=== PATIENT | female | born 1950 | race Caucasian/White ===

== ENCOUNTER 2016-12-20 19:46 | Emergency (ER) | payer MEDICARE ==
[2016-12-20 20:05] VITALS: TEMP 98.6
[2016-12-20] MEDS ORDERED: MORPHINE SULFATE INJ 10 MG/ML VIAL IV ONE ×2 (20:25→22:37)
--- NOTE | 2016-12-20 20:29 | ED.PDOC ---
History of Present Illness - General Chief Complaint: Back Pain or Injury Stated Complaint: Fall with back/head pain Time Seen by Provider: 12/20/16 20:16 Source: patient, family Exam Limitations: no limitations - History of Present Illness Initial Comments: PT WAS STANDING 5 FEET HIGH ON LADDER. FELL BACKWARD AND HER BACK AND HEAD COLLIDED WITH FLOOR. C/O BACK PAIN IN MIDDLE OF SCAPULA AND PAIN IN FOREHEAD. POS LOC FOR A MOMENT. PT DENIES ANY PAIN INFERIOR TO THE RIBS. Occurred: just prior to arrival Severity: severe Pain Location: head, back, other - RIB PAIN Method of Injury: fall Improving Factors: nothing Worsening Factors: movement Loss of Consciousness: brief (seconds) Associated Symptoms (Fall): headache, vision changes - WHICH RESOLVED AFTER 1 HR Allergies/Adverse Reactions: Allergies Levofloxacin [From Levaquin] Allergy (Unverified 02/13/13 08:23) Home Medications: Ambulatory Orders Aspirin [Aspirin 81] 81 mg PO DAILY 02/12/13 Duloxetine HCl [Cymbalta] 60 mg PO DAILY 02/12/13 Esomeprazole Magnesium [Nexium] 40 mg PO DAILY 02/12/13 Gabapentin [Neurontin] 300 mg PO DAILY 02/12/13 Gabapentin [Neurontin] 600 mg PO BID 02/12/13 Lisinopril 20 mg PO BID 02/12/13 Metoprolol Tartrate [Lopressor] 50 mg PO DAILY 02/12/13 Acetaminophen W/ Codeine [Tylenol W/ CODEINE #3] 1 ea PO Q6H PRN #30 12/20/16 Review of Systems - Review of Systems Constitutional: States: no symptoms reported EENTM: Denies: blurred vision, ear pain, nose pain Respiratory: Denies: cough, short of breath Cardiology: Denies: chest pain, palpitations Gastrointestinal/Abdominal: States: no symptoms reported. Denies: abdominal pain Genitourinary: States: no symptoms reported Musculoskeletal: States: back pain. Denies: neck pain Skin: States: no symptoms reported Neurological: States: headache. Denies: paresthesia, tingling Endocrine: States: no symptoms reported Hematologic/Lymphatic: States: no symptoms reported All other Systems: Reviewed and Negative Past Medical History (General) - Patient Medical History Hx Congestive Heart Failure: No Hx Hypertension: Yes Hx Diabetes: No - Social History Hx Alcohol Use: No Family Medical History - Family History Mother Family History: Unknown Physical Exam - Physical Exam General Appearance: Alert, Obvious distress Head Injury: no evidence of injury Eye Exam: bilateral normal ENT Exam: hearing grossly normal, no evidence of ENT injury, no dental injury Neck Exam: non-tender, other - C-COLLAR IN PLACE FROM EMT. Cardiovascular/Respiratory: regular rate, rhythm, no M/R/G, normal peripheral pulses, normal breath sounds, no respiratory distress Gastrointestinal/Abdominal: normal bowel sounds, non tender, soft Back Exam: normal inspection, no CVA tenderness, other - TTP THORACIC ( INTRASCAPULAR) Extremity Exam: no evidence of injury, normal range of motion, non-tender Neurologic: no motor/sensory deficits, alert, normal mood/affect, oriented x 3 Skin Exam: normal color, warm/dry - [place] Coma Score Best Eye Response ([place]): (4) open spontaneously Best Verbal Response ([place]): (5) oriented Best Motor Response ([place]): (6) obeys commands Progress - Progress Progress: 12/20/16 22:41 CT OF HEAD AND NECK NEG. CT CHEST = NONDISPLACED RIB FRX LEFT 4-9. NO FLAIL CHEST. UA TRACE BLOOD. Departure - Departure Clinical Impression: Multiple rib fractures involving four or more ribs, Fall from height of greater than 3 feet, Headache, Acute upper back pain, Microscopic hematuria Disposition: Discharge to Home or Self Care Condition: Good Departure Forms: ED Discharge - Pt. Copy, Patient Portal Self Enrollment Instructions: DI for Rib Fracture Diet: resume usual diet Activity: increase activity as tolerated Referrals: Juan F Richey MD [Primary Care Provider] - 1-5 Days Prescriptions: Acetaminophen W/ Codeine [Tylenol W/ CODEINE #3] 1 ea PO Q6H PRN #30 PRN Reason: Pain Home Medications: Ambulatory Orders Aspirin [Aspirin 81] 81 mg PO DAILY 02/12/13 Duloxetine HCl [Cymbalta] 60 mg PO DAILY 02/12/13 Esomeprazole Magnesium [Nexium] 40 mg PO DAILY 02/12/13 Gabapentin [Neurontin] 300 mg PO DAILY 02/12/13 Gabapentin [Neurontin] 600 mg PO BID 02/12/13 Lisinopril 20 mg PO BID 02/12/13 Metoprolol Tartrate [Lopressor] 50 mg PO DAILY 02/12/13 Acetaminophen W/ Codeine [Tylenol W/ CODEINE #3] 1 ea PO Q6H PRN #30 12/20/16 Additional Instructions: Please see your regular doctor this week if the pain is not controlled to where you can breathe comfortably. Also please let your regular doctor know your urine shows trace blood, which is likely from the fall. I hope you feel better soon!
--- NOTE | 2016-12-20 21:17 | CT ---
EXAM DATE: 12/20/2016 8:28 PM CDT. PROCEDURE: CT HEAD WITHOUT IV CONTRAST. INDICATION: FELL BACKWARD OFF LADDER. FOREHEAD PAIN. . COMPARISON: 2010. TECHNIQUE: Axial CT images of the head were acquired without intravenous contrast. This exam was performed according to our departmental dose-optimization program which includes use of Automated Exposure Control, adjustment of the mA and/or kV according to patient size and/or use of iterative reconstruction technique. FINDINGS: No acute intracranial hemorrhage. Butler white matter differentiation is preserved. No mass effect or midline shift. No hydrocephalus. Unremarkable orbits. The paranasal sinuses are well aerated. Mastoid air cells are clear. Intact calvarium. IMPRESSION: No acute intracranial abnormality. Electronically signed by: Wade Bailey MD 12/20/2016 9:16 PM CDT
--- NOTE | 2016-12-20 21:21 | CT ---
EXAM DATE: 12/20/2016 8:29 PM CDT. PROCEDURE: CT CERVICAL SPINE WITHOUT IV CONTRAST. INDICATION: FELL BACKWARD OFF LADDER; DIRECT HEAD COLLISION . COMPARISON: None. TECHNIQUE: Axial CT images of the cervical spine were obtained without administration of intravenous contrast. This exam was performed according to our departmental dose-optimization program which includes use of Automated Exposure Control, adjustment of the mA and/or kV according to patient size and/or use of iterative reconstruction technique. FINDINGS: The cervical vertebral bodies demonstrate normal height and alignment. The intervertebral disc spaces are relatively well-preserved. There is osseous fusion of the C2-C3 facet joint on the left. No acute fracture. Unremarkable spinal canal. There is uncovertebral spurring and facet arthropathy scattered throughout the cervical spine resulting in moderate right foraminal stenosis at C4-C5. No high-grade spinal canal stenosis. Dental amalgam causes streak artifact. The soft tissues of the neck are unremarkable. IMPRESSION: No acute fracture or traumatic subluxation. Electronically signed by: Wade Bailey MD 12/20/2016 9:20 PM CDT
--- NOTE | 2016-12-20 21:32 | CT ---
EXAM DESCRIPTION: Chest w/o Contrast CLINICAL HISTORY: FELL BACKWARD OFF LADDER. MIDSCAPULAR PAIN. COMPARISON: None. TECHNIQUE: Axial CT images of the chest were acquired without administration of intravenous contrast. Coronal and sagittal reconstructions were obtained. This exam was performed according to our departmental dose-optimization program which includes use of Automated Exposure Control, adjustment of the mA and/or kV according to patient size and/or use of iterative reconstruction technique. FINDINGS: Neck base: Unremarkable. Mediastinum: Unremarkable. Lymph Nodes: No lymphadenopathy. Heart and pericardium: Unremarkable. Aorta: Minimal calcific atherosclerosis Pulmonary Artery: Unremarkable. Central Airways: Small probable tracheal diverticulum on the right posteriorly image 19 series 4. Pleura: No pneumothorax or pleural effusion. Lungs: Mild dependent atelectasis bilaterally. No suspicious pulmonary nodules or masses. Upper abdomen: Prior cholecystectomy. Otherwise unremarkable. Bones and soft tissues: Nondisplaced fracture of the left fourth, fifth, sixth, seventh, eighth, and ninth ribs. No scapular fracture is identified. IMPRESSION: Nondisplaced fractures of left ribs four through nine. No identifiable scapular fracture. Electronically signed by: Wade Bailey MD 12/20/2016 9:31 PM CDT
[2016-12-20 22:26] VITALS: BP 146/103; O2SAT 98
== END 2016-12-20 23:00 | disposition home or self-care (01) ==
LOC: ER 19:46
DX: S22.42XA Multiple fractures of ribs, left side, initial encounter for closed fracture (principal); R51 Headache; R31.29 Other microscopic hematuria; M54.6 Pain in thoracic spine; I10 Essential (primary) hypertension; Z79.82 Long term (current) use of aspirin; Z79.899 Other long term (current) drug therapy; W11.XXXA Fall on and from ladder, initial encounter; Y92.9 Unspecified place or not applicable
CPT/HCPCS: 70450; 71250; 72125; 81001; J2270

== ENCOUNTER → 2017-07-04 | Outpatient (CLI) | payer MEDICARE | END | disposition home or self-care (01) | LOC: GMAB 12:29 | PROVIDERS: ATTEND Family Medicine | DX: I10 Essential (primary) hypertension (principal) ==

== ENCOUNTER → 2017-10-19 | Outpatient (CLI) | payer MEDICARE | LOC: GMAM 17:55 | PROVIDERS: ATTEND Family Medicine | DX: M79.672 Pain in left foot (principal) ==

== ENCOUNTER 2018-03-02 23:01 | Emergency (ER) | payer MEDICARE ==
--- NOTE | 2018-03-02 23:31 | ED.PDOC ---
History of Present Illness - General Time Seen by Provider: 03/02/18 23:10 Source: patient, RN notes reviewed, Vital Signs reviewed Additional Information: 67 YEAR OLD PRESENTS WITH PAIN IN THE RIGHT SIDE OF THE ABDOMEN FOR THE PAST 5- 6 DAYS PAIN IS IN THE RLQ RADIATING TO THE GROIN AND BACK AND WORSE TODAY SHE HAS LOST HER APPETITE AND FINDING IT DIFFICULT TO WALK WITHOUT STOOPING FORWARD TO SUPPORT HER ABDOMEN SHE ADMITS TO CHRONIC CONSTIPATION FOR 2 YEARS HAS TO USE LAXATIVES AND ENEMA HOWEVER HAS NEVER NOTICED BLOOD OR MUCOUS NO WEIGHT LOSS SHE HAS HAD NEPHROLITHIASIS SEEN DR ARREDONDO IN THE PAST SHE HAS HAD A COLONOSCOPY BY DR HAILE IN 2010 REPORTED NORMAL - History of Present Illness Timing/Duration: 1 week Severity: moderate Improving Factors: nothing Worsening Factors: nothing Associated Symptoms: nausea/vomiting, weakness Allergies/Adverse Reactions: Allergies Hydromorphone [From Dilaudid] Allergy (Verified 03/03/18 00:53) Levofloxacin [From Levaquin] Allergy (Verified 03/03/18 00:52) Home Medications: Ambulatory Orders Aspirin [Aspirin 81] 81 mg PO DAILY 02/12/13 Duloxetine HCl [Cymbalta] 60 mg PO DAILY 02/12/13 Esomeprazole Magnesium [Nexium] 40 mg PO DAILY 02/12/13 Gabapentin [Neurontin] 300 mg PO DAILY 02/12/13 Gabapentin [Neurontin] 600 mg PO BID 02/12/13 Lisinopril 20 mg PO BID 02/12/13 Metoprolol Tartrate [Lopressor] 50 mg PO DAILY 02/12/13 Acetaminophen W/ Codeine [Tylenol W/ CODEINE #3] 1 ea PO Q6H PRN #30 12/20/16 Review of Systems - Review of Systems Constitutional: States: no symptoms reported EENTM: States: no symptoms reported Respiratory: States: no symptoms reported Cardiology: States: no symptoms reported Gastrointestinal/Abdominal: States: see HPI, constipation Genitourinary: States: see HPI Musculoskeletal: States: no symptoms reported Skin: States: no symptoms reported Neurological: States: no symptoms reported Endocrine: States: no symptoms reported Hematologic/Lymphatic: States: no symptoms reported Past Medical History (General) - Patient Medical History Hx Congestive Heart Failure: No Hx Hypertension: Yes Hx Diabetes: No - Social History Hx Alcohol Use: No Family Medical History - Family History Mother Family History: Unknown Physical Exam - Physical Exam General Appearance: Alert, Ill Appearing Eye Exam: bilateral normal Ears, Nose, Throat: hearing grossly normal, normal ENT inspection, normal pharynx Neck: non-tender, full range of motion, supple Respiratory: chest non-tender, lungs clear, normal breath sounds, no respiratory distress, no accessory muscle use Cardiovascular/Chest: normal peripheral pulses, regular rate, rhythm, no edema, no gallop, no JVD Gastrointestinal/Abdominal: normal bowel sounds, non tender, soft, no organomegaly, no pulsatile mass, tenderness, other - TENDER RLQ NO GAURDING OR REBOUND AT THIS TIME BOWEL SOUNDS PRESENT Back Exam: normal inspection, no CVA tenderness, no vertebral tenderness Extremity: normal range of motion, non-tender, normal inspection, no pedal edema , no calf tenderness Neurologic: insurance analyst II-XII nml as tested, no motor/sensory deficits, alert, normal mood/affect, oriented x 3 Skin Exam: normal color Lymphatic: no adenopathy Progress - Results/Orders Results/Orders: Laboratory Tests 03/02/18 03/02/18 03/02/18 21:39 22:30 22:30 WBC 16.1 H RBC 4.39 Hgb 13.8 Hct 40.8 MCV 92.7 MCH 31.4 H MCHC 33.8 RDW 13.4 Plt Count 267 MPV 7.9 Absolute Neuts (auto) 12.60 H Absolute Lymphs (auto) 1.60 Absolute Monos (auto) 1.80 H Absolute Eos (auto) 0.10 Absolute Basos (auto) 0.10 Neutrophils % 77.9 Lymphocytes % 10.1 L Monocytes % 11.1 H Eosinophils % 0.5 L Basophils % 0.4 Sodium 138 Potassium 3.7 Chloride 105 Carbon Dioxide 25 Anion Gap 11.7 L BUN Cancelled 16 Creatinine Cancelled 0.83 BUN/Creatinine Ratio 19.3 Random Glucose 128 H Serum Osmolality 278.5 Calcium 9.3 Total Bilirubin 0.7 AST 32 ALT 27 Alkaline Phosphatase 85 Serum Total Protein 7.5 Albumin 4.2 Globulin 3.3 Albumin/Globulin Ratio 1.3 Urine Color Urine Appearance Urine pH Ur Specific [place] Urine Protein Urine Glucose (UA) Urine Ketones Urine Blood Urine Nitrite Urine Bilirubin Urine Urobilinogen Ur Leukocyte Esterase Urine RBC Urine WBC Ur Epithelial Cells Urine Bacteria 03/03/18 00:05 WBC RBC Hgb Hct MCV MCH MCHC RDW Plt Count MPV Absolute Neuts (auto) Absolute Lymphs (auto) Absolute Monos (auto) Absolute Eos (auto) Absolute Basos (auto) Neutrophils % Lymphocytes % Monocytes % Eosinophils % Basophils % Sodium Potassium Chloride Carbon Dioxide Anion Gap BUN Creatinine BUN/Creatinine Ratio Random Glucose Serum Osmolality Calcium Total Bilirubin AST ALT Alkaline Phosphatase Serum Total Protein Albumin Globulin Albumin/Globulin Ratio Urine Color Yellow Urine Appearance Clear Urine pH 6.0 Ur Specific [place] 1.010 Urine Protein Negative Urine Glucose (UA) Negative Urine Ketones Negative Urine Blood Trace-lysed H Urine Nitrite Negative Urine Bilirubin Negative Urine Urobilinogen 0.2 Ur Leukocyte Esterase Negative Urine RBC 1-3 Urine WBC 3-5 H Ur Epithelial Cells 3-5 Urine Bacteria Rare Departure - Departure Clinical Impression: Colitis, Diverticulitis, Inflammatory bowel disease Time of Disposition: 00:59 Disposition: Transfer to Hospital Condition: Fair Referrals: Daron Rasmussen MD [Primary Care Provider] - 1-2 Weeks Home Medications: Ambulatory Orders Aspirin [Aspirin 81] 81 mg PO DAILY 02/12/13 Duloxetine HCl [Cymbalta] 60 mg PO DAILY 02/12/13 Esomeprazole Magnesium [Nexium] 40 mg PO DAILY 02/12/13 Gabapentin [Neurontin] 300 mg PO DAILY 02/12/13 Gabapentin [Neurontin] 600 mg PO BID 02/12/13 Lisinopril 20 mg PO BID 02/12/13 Metoprolol Tartrate [Lopressor] 50 mg PO DAILY 02/12/13 Acetaminophen W/ Codeine [Tylenol W/ CODEINE #3] 1 ea PO Q6H PRN #30 12/20/16 Transfer to Outside Facility - Transfer Information Accepting Provider:: DR PEREZ Accepting Facility: [facility]
[2018-03-02] MEDS ORDERED: KETOROLAC TROMETHAMINE INJ 30 MG/ML VIAL IV ONE (23:37)
[2018-03-02] MEDS ORDERED: SODIUM CHLORIDE 0.9% 1000ML 1,000 ML IVS ONE (23:37)
--- NOTE | 2018-03-03 00:38 | CT ---
EXAM DESCRIPTION: Abdomen/Pelvis w/Contrast CLINICAL HISTORY: 67 years Female rt low quad pain COMPARISON: CT chest study from 12/20/2016. TECHNIQUE: Contiguous axial images obtained through the abdomen and pelvis following IV contrast. Reformatted images obtained. This exam was performed according to our department optimization program which includes automated exposure control, adjustment of the mA and/or kv according to patient size and/or use of iterative reconstruction technique. FINDINGS: Minimal atelectasis or scarring in the lower lungs. The liver appears unremarkable. The spleen and pancreas appear unremarkable. No adrenal masses. The kidneys appear unremarkable. No hydronephrosis. Changes from previous cholecystectomy. No aneurysmal dilatation of the aorta. No bowel obstruction. The appendix appears unremarkable. There are diverticula within the sigmoid colon. There is wall thickening in the sigmoid colon with surrounding inflammatory changes. There is some low density along the wall of the distal sigmoid colon suggesting an intramural abscess. The findings are likely from diverticulitis. Colitis is not completely excluded. No significant free pelvic fluid. Mild degenerative changes in the spine. IMPRESSION: There is wall thickening in the sigmoid colon with surrounding inflammatory changes. There is low density along the wall of the distal sigmoid colon suggesting an intramural abscess. The findings are likely from diverticulitis. Colitis is not completely excluded. Electronically signed by: Dino Warren MD 03/03/2018 12:37 AM COMPUTER SCIENCE PROFESSOR Workstation: Where I've Been
[2018-03-03] MEDS ORDERED: PIPERACILLIN/TAZOBACTAM 3.375 GM in SODIUM CHLORIDE 0.9% 100ML 100 ML IVPB ONE (00:49)
[2018-03-03] MEDS ORDERED: PIPERACILLIN/TAZOBACTAM 3.375 GM VIAL IVPB ONE (00:53)
[2018-03-03] MEDS ORDERED: SODIUM CHLORIDE 0.9% 100ML 100 ML IVPB ONE (00:53)
[2018-03-03] MEDS ORDERED: MORPHINE SULFATE INJ 10 MG/ML VIAL IV ONE (01:28)
[2018-03-03 02:20] VITALS: BP 95/60; TEMP 99.9; O2SAT 94
== END 2018-03-03 02:36 | disposition short-term general hospital (02) ==
LOC: ER 23:01
DX: K52.9 Noninfective gastroenteritis and colitis, unspecified (principal); K57.90 Diverticulosis of intestine, part unspecified, without perforation or abscess without bleeding; K58.9 Irritable bowel syndrome, unspecified; I10 Essential (primary) hypertension
CPT/HCPCS: 36415; 74177; 80053; 81001; 85025; J1885; J2270; J2543; J7030; J7050

== ENCOUNTER 2018-03-09 13:04 | Emergency (ER) | payer MEDICARE ==
[2018-03-09 13:28] VITALS: TEMP 99.2
[2018-03-09] MEDS ORDERED: SODIUM CHLORIDE 0.9% 1000ML 1,000 ML IVS ONE (13:38)
--- NOTE | 2018-03-09 13:46 | ED.PDOC ---
History of Present Illness - General Chief Complaint: Syncope/Near Syncope Stated Complaint: syncope,diverticulitis Time Seen by Provider: 03/09/18 13:36 Source: patient, family Exam Limitations: no limitations - History of Present Illness Initial Comments: patient comes in today for syncopal episodes, worsening abdominal pain, and weakness. A week ago patient began having right lower quadrant abdominal pain with fever and nausea. Patient came in and CAT scan showedpossible intramural abscess from diverticulitis. The patient was transferred to [place] where she spent 2 days on IV antibiotics. She was discharged when she was doing better but she continued to be sick with some pain and generalized weakness. Patient was followed up earlier this week on Monday with PCP Dr. Rasmussen and at that time pain was slightly improved, white blood cell count had returned to normal, and patient was continued on Augmentin that she was discharged home on from the hospital stay. On Monday however, patient had a syncopal episode when she was on the toilet going to have a bowel movement. Patient states the pain is moderate until she has a bowel movement and then can feel when the BM gets to the area of discomfort and the pain becomes severe. That time patient fell to the floor hitting her head and was taken to ER in [place]. Workup in [place] was normal and they sent her home to continue the augmentin and added tramadol for pain. Patient has becoming slightly worse in the last 24 hours. Last night patient was again on the toilet when she became very dizzy and called her and to monitor her. Patient had episode of syncope that lasted approximately 30 seconds with 1-2 minutes of lethargy afterwards. This time she did not fall or injure herself. Her was standing by holding her. She had no tonic-clonic activity. She was alert and oriented after the incident. She denies any other systemic problems. She's had some chills last night for the first time since she got out of the hospital. She's had no known fever. She denies chest pain, shortness of breath, nausea, or vomiting. Patient's had no blood in her stools. She otherwise fairly healthy and her past medical history is positive only for hypertension. Past surgical history is positive for abdominal hysterectomy and laparoscopic cholecystectomy. Patient has no history of tobacco use, rarely uses ETOH, and does not take illicit substances. Timing/Duration: 1 week Severity: moderate Improving Factors: nothing Worsening Factors: nothing Associated Symptoms: fever/chills, weakness Allergies/Adverse Reactions: Allergies Hydromorphone [From Dilaudid] Allergy (Verified 03/03/18 00:53) Levofloxacin [From Levaquin] Allergy (Verified 03/03/18 00:52) Home Medications: Ambulatory Orders Aspirin [Aspirin 81] 81 mg PO DAILY 02/12/13 Duloxetine HCl [Cymbalta] 60 mg PO DAILY 02/12/13 Esomeprazole Magnesium [Nexium] 40 mg PO DAILY 02/12/13 Gabapentin [Neurontin] 300 mg PO DAILY 02/12/13 Gabapentin [Neurontin] 600 mg PO BID 02/12/13 Lisinopril 20 mg PO BID 02/12/13 Metoprolol Tartrate [Lopressor] 50 mg PO DAILY 02/12/13 Acetaminophen W/ Codeine [Tylenol W/ CODEINE #3] 1 ea PO Q6H PRN #30 12/20/16 Review of Systems - Review of Systems Constitutional: States: weakness EENTM: States: no symptoms reported. Denies: eye pain, ear pain, nose pain, throat pain Respiratory: States: no symptoms reported. Denies: cough, short of breath, wheezing Cardiology: States: syncope. Denies: chest pain, edema, palpitations Gastrointestinal/Abdominal: States: see HPI, abdominal pain. Denies: const ipation, diarrhea, nausea, vomiting Genitourinary: States: no symptoms reported Musculoskeletal: States: no symptoms reported Skin: States: no symptoms reported Past Medical History (General) - Patient Medical History Hx Stroke: No Hx Congestive Heart Failure: No Hx Hypertension: Yes Hx Diabetes: No Surgical History: cholecystectomy, tonsillectomy, Hysterectomy - Vaccination History Hx Tetanus, Diphtheria Vaccination: Yes Hx Influenza Vaccination: No Hx Pneumococcal Vaccination: No - Social History Hx Tobacco Use: Yes Hx Alcohol Use: No Family Medical History - Family History Mother Family History: Unknown Physical Exam - Physical Exam General Appearance: Alert, Ill Appearing Eye Exam: bilateral normal Ears, Nose, Throat: hearing grossly normal, normal ENT inspection, normal pharynx Neck: non-tender, full range of motion, supple, normal inspection Respiratory: chest non-tender, lungs clear, normal breath sounds Cardiovascular/Chest: normal peripheral pulses, regular rate, rhythm, no edema, no murmur Gastrointestinal/Abdominal: soft, other - TTP RLQ without mass, rebound, or guarding. Extremity: normal range of motion, non-tender Neurologic: alert, oriented x 3 Progress - Progress Progress: 03/09/18 15:02 patient is feeling better with IVF. She admits to decreased po intake with ongoing infection. Explained need to increase her intake and will try some ensure. Follow up in am but all tests are improved and patient is ready to be discharged home. - Results/Orders Results/Orders: 03/09/18 13:38 Hold Metformin x 48Hrs [id number] 03/09/18 13:45 EKG STAT Laboratory Results WBC 10.0 K/mm3 (4.8-10.8) 03/09/18 13:56 RBC 4.65 M/mm3 (4.20-5.40) 03/09/18 13:56 Hgb 14.5 gm/dL (12.0-16.0) 03/09/18 13:56 Hct 43.0 % (36.0-47.0) 03/09/18 13:56 MCV 92.6 fl (81.0-99.0) 03/09/18 13:56 MCH 31.2 pg (27.0-31.0) H 03/09/18 13:56 MCHC 33.7 g/dL (33.0-37.0) 03/09/18 13:56 RDW 13.7 % (11.5-14.5) 03/09/18 13:56 Plt Count 404 K/mm3 (130-400) H 03/09/18 13:56 MPV 7.7 fl (7.40-10.4) 03/09/18 13:56 Absolute Neuts (auto) 7.10 K/uL (1.8-6.8) H 03/09/18 13:56 Absolute Lymphs (auto) 1.90 K/uL (1.0-3.4) 03/09/18 13:56 Absolute Monos (auto) 0.90 K/uL (0.2-0.8) H 03/09/18 13:56 Absolute Eos (auto) 0.10 K/uL (0.0-0.4) 03/09/18 13:56 Absolute Basos (auto) 0.10 K/uL (0.0-0.1) 03/09/18 13:56 Neutrophils % 70.8 % (42.0-78.0) 03/09/18 13:56 Lymphocytes % 18.9 % (20.0-50.0) L 03/09/18 13:56 Monocytes % 8.5 % (2.0-9.0) 03/09/18 13:56 Eosinophils % 0.6 % (1.0-5.0) L 03/09/18 13:56 Basophils % 1.2 % (0.0-2.0) 03/09/18 13:56 Sodium 139 mmol/L (135-145) 03/09/18 13:56 Potassium 4.5 mmol/L (3.6-5.0) 03/09/18 13:56 Chloride 101 mmol/L (101-111) 03/09/18 13:56 Carbon Dioxide 28 mmol/L (21-31) 03/09/18 13:56 Anion Gap 14.5 (12-18) 03/09/18 13:56 BUN 17 mg/dL (7-18) 03/09/18 13:56 Creatinine 0.84 mg/dL (0.6-1.3) 03/09/18 13:56 BUN/Creatinine Ratio 20.2 (10-20) H 03/09/18 13:56 Random Glucose 101 mg/dL (70-105) 03/09/18 13:56 Serum Osmolality 279.2 mOsm/L (275-295) 03/09/18 13:56 Lactic Acid 1.0 mmol/L (0.5-2.2) 03/09/18 13:56 Calcium 9.9 mg/dL (8.4-10.2) 03/09/18 13:56 Total Bilirubin 0.6 mg/dL (0.2-1.0) 03/09/18 13:56 AST 27 IU/L (10-42) 03/09/18 13:56 ALT 30 IU/L (10-60) 03/09/18 13:56 Alkaline Phosphatase 90 IU/L (42-121) 03/09/18 13:56 Creatine Kinase 35 IU/L (26-140) 03/09/18 13:56 CK-MB (CK-2) 0.7 ng/mL (0.0-4.4) 03/09/18 13:56 CK-MB (CK-2) % Not Reportable 03/09/18 13:56 Troponin I < 0.02 ng/mL (0.01-0.05) 03/09/18 13:56 Serum Total Protein 7.7 gm/dL (6.4-8.2) 03/09/18 13:56 Albumin 4.1 g/dl (3.2-5.5) 03/09/18 13:56 Globulin 3.6 gm/dL (2.3-3.5) H 03/09/18 13:56 Albumin/Globulin Ratio 1.1 (1.1-1.9) 03/09/18 13:56 Patient Name: PAXTON BRUNO Gender: Female Date of : 1950 Referring Physician: KOLTON ALMARAZ Organization: [facility] Accession Number: [id number] Requested Date: March 09, 2018 13:38 Report Status: Final Requested Procedure: 1 Procedure Description: Abdomen/Pelvis w/wo Contrast Modality: CT Findings Reporting MD: Dada Swanson Fellow MD: Not available Dictation Time: [employer] Team Leader: Not available Bed Laster Date: EXAM DESCRIPTION: Abdomen/Pelvis w/wo Contrast: Computed Tomography. CLINICAL HISTORY: worsening pain ?abscess on prior CT COMPARISON: None. TECHNIQUE: Spiral-axial scans at 5 x 5 mm intervals through the abdomen and pelvis before and after standard dose nonionic IV contrast. No oral contrast. Coronal and sagittal 2.0 mm reconstructions. 5 mm Delayed helical-axial scans, liver through the pubic symphysis. No adverse reactions. Total Exam DLP 1391.44 mGy - cm. This exam was performed according to our departmental CT dose-optimization program which includes automated exposure control, adjustment of the mA and/or kV according to patient size and/or use of iterative reconstruction technique; to reduce radiation dose to as low as reasonably achievable (ALARA). FINDINGS: Colon: Diffuse fecal material with minimal gas bubbles in the rectosigmoid colon. Significant improvement compared to thickening of the distal sigmoid and proximal rectal wall with edema, no serosal thickening, and surrounding fatty stranding seen on the prior study. Minimal stranding remains with minimal enhancement of the bowel wall. Minimal fluid in the cul-de-sac and fascial thickening. Decompression of the more proximal descending colon compared to the prior study. Diverticula normal caliber in the mid and distal sigmoid. Minimal distention of the cecum, ascending colon, and transverse colon with fecal matter, but less distended than on the prior study. No air-fluid levels. Pelvic Organs: Urinary bladder well-distended with no radiodense stones. Vaginal cuff and adnexa negative. Lung bases and pleura: Bilateral scarring in the lung bases and pleural thickening more on the left than the right unchanged. Minimal coronary artery calcifications. Liver, Stomach, Spleen, Adrenal Glands: Minimal dilation of the intrahepatic ducts. Mild dilation of the common bile duct post cholecystectomy. No focal hepatic splenic or adrenal lesions. Stomach negative. Pancreas, Gallbladder: Surgical clips in the gallbladder fossa [facility] [employer] [address] [place] [address], [address] [place] [address] T [phone] F [phone] [email or web address] - Report exported on Mar 09, 2018 15:01:11 -0600 - Page 2 of 2 with no fluid. Pancreas negative. Kidneys and Ureters: Unremarkable. Mesentery: Minimal stranding and fascial thickening only in the pelvis adjacent to the sigmoid colon and proximal rectum but decreased compared to the prior study. Aorta: Bilateral atherosclerotic calcification normal caliber. Small Bowel: Contains minimal gas mostly fluid with no distention. Terminal Ileum/Cecum: Normal caliber. Appendix not seen. No abnormal fatty density. Spine and Bony Pelvis: Cystic degenerative changes subchondral right acetabulum. Also seen on the prior study. Abdominal Wall/Back Soft Tissues: Negative. IMPRESSION: 1. Significantly decreased inflammatory changes in the wall and mucosa of the distal sigmoid and proximal rectum compared to the prior study with decreased inflammatory reaction in the surrounding soft tissues and decreased fluid in the cul-de-sac. No diverticular enlargement. Decreased caliber of proximal colon from the cecum to the sigmoid. Mild constipation from the cecum to the splenic flexure. 2. Remainder the study shows no new findings since the prior study. 3.Consider plain film follow-up degenerative changes in the right hip, especially if patient symptomatic. - EKG/XRAY/CT EKG: Sinus, no ST T wave changes Comments: HR of 77 with normal axis Departure - Departure Clinical Impression: Diverticulitis Disposition: Discharge to Home or Self Care Condition: Fair Departure Forms: ED Discharge - Pt. Copy, Patient Portal Self Enrollment Diet: other - increase intake trial of Ensure between meals Referrals: Daron Rasmussen MD [Primary Care Provider] - 1-2 Weeks Home Medications: Ambulatory Orders Aspirin [Aspirin 81] 81 mg PO DAILY 02/12/13 Duloxetine HCl [Cymbalta] 60 mg PO DAILY 02/12/13 Esomeprazole Magnesium [Nexium] 40 mg PO DAILY 02/12/13 Gabapentin [Neurontin] 300 mg PO DAILY 02/12/13 Gabapentin [Neurontin] 600 mg PO BID 02/12/13 Lisinopril 20 mg PO BID 02/12/13 Metoprolol Tartrate [Lopressor] 50 mg PO DAILY 02/12/13 Acetaminophen W/ Codeine [Tylenol W/ CODEINE #3] 1 ea PO Q6H PRN #30 12/20/16 Additional Instructions: follow up in am with PCP. Return to Er for syncope, increase pain, temp >100.5
--- NOTE | 2018-03-09 14:53 | CT ---
EXAM DESCRIPTION: Abdomen/Pelvis w/wo Contrast: Computed Tomography. CLINICAL HISTORY: worsening pain ?abscess on prior CT COMPARISON: None. TECHNIQUE: Spiral-axial scans at 5 x 5 mm intervals through the abdomen and pelvis before and after standard dose nonionic IV contrast. No oral contrast. Coronal and sagittal 2.0 mm reconstructions. 5 mm Delayed helical-axial scans, liver through the pubic symphysis. No adverse reactions. Total Exam DLP 1391.44 mGy - cm. This exam was performed according to our departmental CT dose-optimization program which includes automated exposure control, adjustment of the mA and/or kV according to patient size and/or use of iterative reconstruction technique; to reduce radiation dose to as low as reasonably achievable (ALARA). FINDINGS: Colon: Diffuse fecal material with minimal gas bubbles in the rectosigmoid colon. Significant improvement compared to thickening of the distal sigmoid and proximal rectal wall with edema, no serosal thickening, and surrounding fatty stranding seen on the prior study. Minimal stranding remains with minimal enhancement of the bowel wall. Minimal fluid in the cul-de-sac and fascial thickening. Decompression of the more proximal descending colon compared to the prior study. Diverticula normal caliber in the mid and distal sigmoid. Minimal distention of the cecum, ascending colon, and transverse colon with fecal matter, but less distended than on the prior study. No air-fluid levels. Pelvic Organs: Urinary bladder well-distended with no radiodense stones. Vaginal cuff and adnexa negative. Lung bases and pleura: Bilateral scarring in the lung bases and pleural thickening more on the left than the right unchanged. Minimal coronary artery calcifications. Liver, Stomach, Spleen, Adrenal Glands: Minimal dilation of the intrahepatic ducts. Mild dilation of the common bile duct post cholecystectomy. No focal hepatic splenic or adrenal lesions. Stomach negative. Pancreas, Gallbladder: Surgical clips in the gallbladder fossa with no fluid. Pancreas negative. Kidneys and Ureters: Unremarkable. Mesentery: Minimal stranding and fascial thickening only in the pelvis adjacent to the sigmoid colon and proximal rectum but decreased compared to the prior study. Aorta: Bilateral atherosclerotic calcification normal caliber. Small Bowel: Contains minimal gas mostly fluid with no distention. Terminal Ileum/Cecum: Normal caliber. Appendix not seen. No abnormal fatty density. Spine and Bony Pelvis: Cystic degenerative changes subchondral right acetabulum. Also seen on the prior study. Abdominal Wall/Back Soft Tissues: Negative. IMPRESSION: 1. Significantly decreased inflammatory changes in the wall and mucosa of the distal sigmoid and proximal rectum compared to the prior study with decreased inflammatory reaction in the surrounding soft tissues and decreased fluid in the cul-de-sac. No diverticular enlargement. Decreased caliber of proximal colon from the cecum to the sigmoid. Mild constipation from the cecum to the splenic flexure. 2. Remainder the study shows no new findings since the prior study. 3.Consider plain film follow-up degenerative changes in the right hip, especially if patient symptomatic. Electronically signed by: Dada Swanson MD 03/09/2018 2:51 PM [facility]
[2018-03-09 15:23] VITALS: BP 140/86; O2SAT 96
== END 2018-03-09 15:45 | disposition home or self-care (01) ==
LOC: ER 13:04
DX: K57.32 Diverticulitis of large intestine without perforation or abscess without bleeding (principal); R55 Syncope and collapse; Z90.49 Acquired absence of other specified parts of digestive tract; Z87.891 Personal history of nicotine dependence
CPT/HCPCS: 36415; 74178; 80053; 82550; 82553; 83605; 84484; 85025; 93005; J7030

== ENCOUNTER → 2019-03-08 | Outpatient (CLI) | payer MEDICARE ==
--- NOTE | 2019-03-08 11:05 | CT ---
EXAM DESCRIPTION: CTA Neck CLINICAL HISTORY: 68 years Female, OCCLUSION AND STENOSIS OF UNSPEC CAROTID ARTERY COMPARISON: Doppler carotid 10/16/2010 TECHNIQUE: Helical CT images are acquired from aortic arch to skull base following intravenous contrast. Multi-planar reformations provided. This examination was performed according to a CT angiographic (CTA) protocol with 3D post-processing. This involves 3D reconstructions, MIPS, volume rendered images and/or shaded surface rendering. This exam was performed according to our departmental dose-optimization program, which includes automated exposure control, adjustment of the mA and/or kV according to patient size and/or use of iterative reconstruction technique. FINDINGS: Cervical-cerebral arch: Conventional branching of the aortic arch. Patent origins of the great vessels and visualized subclavian arteries. Right carotid system: Normal without significant atherosclerosis. The estimated internal carotid stenosis by NASCET criteria is 0%. Left carotid system: Normal without significant atherosclerosis. The estimated internal carotid stenosis by NASCET criteria is 0%. Vertebral arteries: Patent vertebral arteries and its origins. Musculoskeletal: No acute fracture or aggressive appearing osseous lesion. Soft tissues unremarkable. Other findings: 5 mm hypodense left thyroid nodule. No further imaging follow-up recommended based on size and patient's age. IMPRESSION: 1. Unremarkable CTA of the neck. COMMENT: All internal carotid artery stenoses are calculated based on NASCET criteria. Electronically signed by: Bishnu Mane MD 03/08/2019 11:00 AM SOURCING ASSOCIATE
== END ==
LOC: CT 09:30
PROVIDERS: ATTEND Family Medicine
DX: I65.29 Occlusion and stenosis of unspecified carotid artery (principal)

== ENCOUNTER → 2019-10-28 | Outpatient (CLI) | payer MEDICARE | LOC: GMAM 14:42 | PROVIDERS: ATTEND Family Medicine | DX: E34.9 Endocrine disorder, unspecified (principal); I10 Essential (primary) hypertension ==

== ENCOUNTER → 2019-10-31 | Outpatient (CLI) | payer MEDICARE ==
--- NOTE | 2019-11-02 18:55 | US ---
EXAM DESCRIPTION: Soft Tissue,Head/Neck: ULTRASOUND. CLINICAL HISTORY: 69 years Female LYMPHADENOPATHY RIGHT CERVICAL AND SUPRACLAVICULAR COMPARISON: CTA neck February [address] scan cervical spine November 2016 TECHNIQUE: Transcutaneous scanning: Butler-scale and Doppler modes. FINDINGS: Scanning lateral right neck and base of neck. Palpable mass sagittal right neck. Hypoechoic mass with eccentric echogenicity. The mass measures 6.3 x 5.8 x 4.9 mm and vascular. Consistent with a lymph node. Right mandibular gland is present. IMPRESSION: Possibly reactive lymph node right lateral neck at the base. Smaller nodes also present. No dominant solid mass, no distinct cyst, no fluid collection or calcification. Small lymph nodes are abutting the right submandibular gland on prior CT scans. Electronically signed by: Dada Swanson MD 11/02/2019 6:54 PM CDT
== END ==
LOC: US 11:01
PROVIDERS: ATTEND Family Medicine
DX: R59.9 Enlarged lymph nodes, unspecified (principal)

== ENCOUNTER 2020-02-18 17:28 | Emergency (ER) | payer MEDICARE ==
[2020-02-18 18:02] VITALS: TEMP 96.9
--- NOTE | 2020-02-18 18:32 | RAD ---
EXAM DESCRIPTION: Chest,1 View CLINICAL HISTORY: 69 years Female sob COMPARISON: CT chest study from 12/20/2016. FINDINGS: The cardiomediastinal silhouette appears unremarkable. No consolidating infiltrates or pleural effusions. No pneumothorax. Old left rib fractures. IMPRESSION: No acute abnormality is identified. Electronically signed by: Dino Warren MD 02/18/2020 6:31 PM MAGAZINE EDITOR
--- NOTE | 2020-02-18 19:17 | ED.PDOC ---
History of Present Illness - General Chief Complaint: Respiratory Problem Stated Complaint: SOB STATES SATS BELOW 95% Time Seen by Provider: 02/18/20 17:51 Source: patient, RN notes reviewed, Vital Signs reviewed Exam Limitations: no limitations - History of Present Illness Initial Comments: Patient is a 69-year-old white female who presents with complaints of her oxygen saturation being below 95%. She stated that she spoke to her doctor, Dr. Rose Rasmussen who told her that if her oxygen saturation dropped below 95% she should immediately come to the emergency department. Patient complains of slightly worsening shortness of breath over the last 24 hours. She was doing well until earlier this morning when she became more short of breath and tired. Patient states that her oxygen saturation dropped to 94% and so she came in. Patient denies any fever or chills. Patient was diagnosed with Covid approximately 7 days ago. Patient just finished a round of prednisone and a Z-Sukhwinder that was prescribed by her PCP. Shortness of breath is worse with exertion. It is improved with rest. Patient is not on oxygen at home. Timing/Duration: 1 week, getting worse Severity: moderate Improving Factors: rest Worsening Factors: movement Associated Symptoms: cough, loss of appetite, shortness of breath Allergies/Adverse Reactions: Allergies Hydromorphone [From Dilaudid] Allergy (Verified 02/18/20 18:02) Levofloxacin [From Levaquin] Allergy (Verified 02/18/20 18:02) Home Medications: Ambulatory Orders Aspirin [Aspirin 81] 81 mg PO DAILY 02/12/13 Gabapentin [Neurontin] 600 mg PO BID 02/12/13 Amoxicillin & Pot Clavulanate [Augmentin Tab] 875 mg PO BID 03/09/18 B-Complex W/Biotin & Folic Aci [Super B-Complex] 1 tab PO DAILY 03/09/18 Cholecalciferol [Vitamin D-3] 5,000 unit PO DAILY 03/09/18 Polyethylene Glycol 3350 [Miralax] 17 gm PO TID 03/09/18 Probiotic Product [Probiotic] 1 tab PO DAILY 03/09/18 Promethazine HCl 12.5 mg PO Q6H PRN 03/09/18 Ropinirole Hydrochloride [Ropinirole ER] 4 mg PO BEDTIME 03/09/18 Rosuvastatin Calcium 20 mg PO DAILY 03/09/18 Telmisartan 40 mg PO DAILY 03/09/18 Tramadol HCl 50 mg PO Q4H PRN 03/09/18 Review of Systems - Review of Systems Constitutional: States: see HPI, malaise, weakness. Denies: chills, fever EENTM: States: no symptoms reported. Denies: eye pain, blurred vision, double vision Respiratory: States: see HPI, cough, short of breath. Denies: stridor, wheezing Cardiology: States: no symptoms reported. Denies: chest pain, palpitations, syncope Gastrointestinal/Abdominal: States: no symptoms reported. Denies: abdominal pain, diarrhea, nausea, vomiting Genitourinary: States: no symptoms reported. Denies: dysuria, frequency Musculoskeletal: States: no symptoms reported. Denies: back pain, joint pain, neck pain Skin: States: no symptoms reported. Denies: change in color, rash Neurological: States: see HPI, weakness. Denies: headache, numbness, paresthesia, tingling, tremors Endocrine: States: no symptoms reported. Denies: increased hunger, increased thirst, increased urine Hematologic/Lymphatic: States: no symptoms reported. Denies: blood clots, easy bleeding All other Systems: No Change from Baseline Past Medical History (General) - Patient Medical History Hx Stroke: No Hx of COPD: No Hx Cardiac Disorders: No Hx Congestive Heart Failure: No Hx Hypertension: Yes Hx Diabetes: No Hx Cancer: No Hx Hepatitis C: No Surgical History: cholecystectomy, Hysterectomy - Vaccination History Hx Tetanus, Diphtheria Vaccination: No Hx Influenza Vaccination: Yes Hx Pneumococcal Vaccination: No Immunizations Up to Date: No - Social History Hx Tobacco Use: No Hx Alcohol Use: No Hx Substance Use: No Hx Substance Use Treatment: No Hx Depression: No - Female History Patient is a Female of Child Bearing Age (10 -59 yrs old): No Family Medical History - Family History Mother Family History: Unknown Physical Exam - Physical Exam General Appearance: Alert, Anxious, No apparent distress, Well Developed, Well Groomed, Well Hydrated, Well Nourished Eye Exam: bilateral normal Ears, Nose, Throat: hearing grossly normal, normal ENT inspection, normal pharynx Neck: non-tender, full range of motion, supple Respiratory: chest non-tender, lungs clear, normal breath sounds, no respiratory distress Cardiovascular/Chest: normal peripheral pulses, regular rate, rhythm, no edema, no gallop, no JVD, no murmur Peripheral Pulses: radial,right: 2+, radial,left: 2+ Gastrointestinal/Abdominal: normal bowel sounds, non tender, soft Back Exam: no CVA tenderness, no vertebral tenderness Extremity: normal range of motion, non-tender, normal inspection 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 02/18/20 19:21 Patient's chest x-ray is pristine. Lab work is relatively unremarkable. Unlikely to have PE. Patient was diagnosed at outside clinic with Covid. I thi nk this is just a side effect of her Covid. Her oxygen saturations have never gone below 95% here in the ED and she is resting comfortably on room air at 97% O2 sats. Plan on discharge home with follow-up with PCP. I discussed the plan of care with the patient she voices understanding and agreement. Dino Castellano M.D. #[id number] - Results/Orders Results/Orders: Laboratory Tests 02/18/20 02/18/20 02/18/20 18:05 18:05 18:05 WBC 5.4 RBC 4.65 Hgb 14.8 Hct 42.3 MCV 90.9 MCH 31.7 H MCHC 34.9 RDW 13.2 Plt Count 271 MPV 7.7 Absolute Neuts (auto) 3.90 Absolute Lymphs (auto) 1.10 Absolute Monos (auto) 0.40 Absolute Eos (auto) 0.00 Absolute Basos (auto) 0.00 Neutrophils % 71.4 Lymphocytes % 21.2 Monocytes % 7.1 Eosinophils % 0.0 L Basophils % 0.3 PTT (SP) 23.8 D-Dimer, Quantitative < 131.0 L Sodium 139 Potassium 4.0 Chloride 103 Carbon Dioxide 24 Anion Gap 16.0 BUN 16 Creatinine 0.94 BUN/Creatinine Ratio 17.0 Random Glucose 192 H Serum Osmolality 283.9 Calcium 9.2 Magnesium 1.9 Total Bilirubin 0.6 AST 46 H ALT 50 Alkaline Phosphatase 68 LD Total 114 Creatine Kinase 87 Troponin I C-Reactive Protein < 0.8 B-Natriuretic Peptide 23.4 Serum Total Protein 7.1 Albumin 4.4 Globulin 2.7 Albumin/Globulin Ratio 1.6 02/18/20 18:05 WBC RBC Hgb Hct MCV MCH MCHC RDW Plt Count MPV Absolute Neuts (auto) Absolute Lymphs (auto) Absolute Monos (auto) Absolute Eos (auto) Absolute Basos (auto) Neutrophils % Lymphocytes % Monocytes % Eosinophils % Basophils % PTT (SP) D-Dimer, Quantitative Sodium Potassium Chloride Carbon Dioxide Anion Gap BUN Creatinine BUN/Creatinine Ratio Random Glucose Serum Osmolality Calcium Magnesium Total Bilirubin AST ALT Alkaline Phosphatase LD Total Creatine Kinase Troponin I < 0.02 C-Reactive Protein B-Natriuretic Peptide Serum Total Protein Albumin Globulin Albumin/Globulin Ratio EXAM DESCRIPTION: Chest,1 View CLINICAL HISTORY: 69 years Female sob COMPARISON: CT chest study from 12/20/2016. FINDINGS: The cardiomediastinal silhouette appears unremarkable. No consolidating infiltrates or pleural effusions. No pneumothorax. Old left rib fractures. IMPRESSION: No acute abnormality is identified. Electronically signed by: Dino Warren MD 02/18/2020 6:31 PM [employer] EKG performed 18 February 2020 at 1909 hrs.: Normal sinus rhythm at 74 bpm, left atrial enlargement, borderline EKG, no acute ischemia. No comparison EKG available at this time. Vital Signs 02/18/20 02/18/20 17:55 19:04 Temperature 96.9 F L Pulse Rate [ 86 PULSE OX] Respiratory 20 18 Rate Blood Pressure 185/89 [LA] O2 Sat by Pulse 97 Oximetry Departure - Departure Clinical Impression: COVID-19 determined by clinical diagnostic criteria Dyspnea Qualifiers: Dyspnea type: shortness of breath Qualified Code(s): R06.02 - Shortness of breath; R06.00 - Dyspnea, unspecified; R06.01 - Orthopnea Time of Disposition: 19:25 Disposition: Discharge to Home or Self Care Condition: Good Departure Forms: ED Discharge - Pt. Copy, Patient Portal Self Enrollment Instructions: Coronavirus Disease 2019 (COVID-19), Shortness of Breath (Dyspnea) (DC) Activity: increase activity as tolerated Referrals: Daron Rasmussen MD [Primary Care Provider] - 1-5 Days Home Medications: Ambulatory Orders Aspirin [Aspirin 81] 81 mg PO DAILY 02/12/13 Gabapentin [Neurontin] 600 mg PO BID 02/12/13 Amoxicillin & Pot Clavulanate [Augmentin Tab] 875 mg PO BID 03/09/18 B-Complex W/Biotin & Folic Aci [Super B-Complex] 1 tab PO DAILY 03/09/18 Cholecalciferol [Vitamin D-3] 5,000 unit PO DAILY 03/09/18 Polyethylene Glycol 3350 [Miralax] 17 gm PO TID 03/09/18 Probiotic Product [Probiotic] 1 tab PO DAILY 03/09/18 Promethazine HCl 12.5 mg PO Q6H PRN 03/09/18 Ropinirole Hydrochloride [Ropinirole ER] 4 mg PO BEDTIME 03/09/18 Rosuvastatin Calcium 20 mg PO DAILY 03/09/18 Telmisartan 40 mg PO DAILY 03/09/18 Tramadol HCl 50 mg PO Q4H PRN 03/09/18
[2020-02-18 19:34] VITALS: BP 149/99; O2SAT 95
== END 2020-02-18 19:34 | disposition home or self-care (01) ==
LOC: ER 17:28
DX: U07.1 COVID-19 (principal); I10 Essential (primary) hypertension; Z79.899 Other long term (current) drug therapy; Z79.82 Long term (current) use of aspirin; Z88.5 Allergy status to narcotic agent; Z88.1 Allergy status to other antibiotic agents